=== PATIENT | female | born 1960 | race Caucasian/White ===

== ENCOUNTER 2019-11-26 09:00 | Outpatient (RCR) | payer OTHER, SELFPAY | END 2020-02-09 23:59 | disposition home or self-care (01) | LOC: ANHBWCAUD 09:00 | PROVIDERS: PCP Family Medicine | DX: Z46.1 Encounter for fitting and adjustment of hearing aid (principal) | CPT/HCPCS: 99199 ==

== ENCOUNTER 2020-12-12 08:51 | Outpatient (RCR) | payer OTHER, SELFPAY | END 2021-03-12 23:59 | disposition home or self-care (01) | LOC: ANHBWCAUD 08:51 | PROVIDERS: PCP Family Medicine; Visit Provider Family Medicine | DX: Z46.1 Encounter for fitting and adjustment of hearing aid (principal) | CPT/HCPCS: 99199 ==

== ENCOUNTER 2021-08-14 07:46 | Outpatient (CLI) | payer OTHER, SELFPAY | END 2021-08-14 07:47 | disposition home or self-care (01) | LOC: ANHBWCAUD 07:46 | PROVIDERS: PCP Family Medicine | DX: H90.6 Mixed conductive and sensorineural hearing loss, bilateral (principal) | CPT/HCPCS: 92557; 92567 ==

== ENCOUNTER 2021-10-23 10:00 | Outpatient (RCR) | payer OTHER, SELFPAY | END 2021-11-29 23:59 | disposition home or self-care (01) | LOC: ANHBWCAUD 10:00 | PROVIDERS: PCP Family Medicine; Visit Provider Family Medicine | DX: Z46.1 Encounter for fitting and adjustment of hearing aid (principal) | CPT/HCPCS: 99199; V5264 ==

== ENCOUNTER 2022-06-04 08:27 | Outpatient (RCR) | payer OTHER, SELFPAY | END 2022-09-02 23:59 | disposition home or self-care (01) | LOC: ANHBWCAUD 08:27 | PROVIDERS: PCP Family Medicine; Visit Provider Family Medicine | DX: Z46.1 Encounter for fitting and adjustment of hearing aid (principal) | CPT/HCPCS: 92593 ==